=== PATIENT | female | born 1950 | race Caucasian/White ===

== ENCOUNTER 2020-04-21 14:48 | Inpatient (IN) | payer MEDICARE, OTHER ==
[~2020-04-21] VITALS: Ht 165.1 cm; Wt 65.0 kg
[2020-04-21 15:53] LABS: MICROSCOPIC NOT IND
[2020-04-21] MEDS ORDERED: SODIUM CHLORIDE FLUSH 10ML SYR IVF ONE (16:00)
--- NOTE | 2020-04-21 16:00 | NUR ---
PT STATES SHE HAS ABDOMINAL PAIN. PT FELL OFF TOILET AND HIT RIBS ON RIGHT SIDE. DENIES N/V. INTERMITTENT SHARP PAIN TO RLQ. DENIES URINATING BLOOD/.
[2020-04-21 16:25] LABS: BASOPHILS % (AUTO) 1 % (0-1); EOSINOPHILS % (AUTO) 2 % (1-7); LYMPHOCYTES % (AUTO) 16 % (22-44); MEAN CORPUSCULAR HEMOGLOBIN 28.7 pg (27.0-34.8); MEAN CORPUSCULAR HGB CONC 33.8 g/dL (32.4-35.8); MEAN PLATELET VOLUME 7.5 fL (7.4-10.4); MONOCYTES % (AUTO) 9 % (2-9); NEUTROPHILS % (AUTO) 73 % (42-75); PLATELET COUNT 324 x10^3/uL (130-400); RED BLOOD COUNT 5.13 x10^6/uL (3.82-5.3); RED CELL DISTRIBUTION WIDTH 13.2 % (9.6-15.2)
[2020-04-21 16:26] LABS: MD NO
[2020-04-21 16:38] LABS: ALANINE AMINOTRANSFERASE 24 U/L (12-78); ALBUMIN 3.9 g/dL (3.4-5.0); ANION GAP 8 mmol/L (5-15); CALCIUM 9.6 mg/dL (8.5-10.1); CHLORIDE 98 mmol/L (98-107); CREATININE 1.19 mg/dL (0.55-1.02)
[2020-04-21 16:40] LABS: ALKALINE PHOSPHATASE 72 U/L (45-117); BILIRUBIN,TOTAL 0.8 mg/dL (0.2-1.0); TOTAL PROTEIN 7.5 g/dL (6.4-8.2)
[2020-04-21] MEDS ORDERED: MORPHINE SULFATE 4 MG/ML, 1ML ONE (16:54)
[2020-04-21] MEDS ORDERED: MORPHINE SULFATE 4 MG/ML, 1ML IVPush PRN (17:00)
[2020-04-21] MEDS ORDERED: ONDANSETRON 2MG/ML, 2ML IVPush ONE (17:00)
--- NOTE | 2020-04-21 17:31 | NUR ---
PIV ATTEMPTED AND UNSUCCESSFUL. WILL ATTEMPT US IV.
--- NOTE | 2020-04-21 17:42 | NUR ---
MEDICATED PER ORDERS, PT READY FOR CT, US IV ESTABLISHED
--- NOTE | 2020-04-21 18:22 | NUR ---
PT BACK FROM CT. IV INFILTRATED DURING CT W CONTRAST.
--- NOTE | 2020-04-21 18:48 | NUR ---
REPORT TO JUAN
--- NOTE | 2020-04-21 19:07 | NUR ---
Report received from ROBIN Stevens. This RN to assume care.
[2020-04-21] MEDS ORDERED: OMNIPAQUE 350 MG/ML, 100ML BOTTLE ONE (19:53)
[2020-04-21] MEDS ORDERED: INSU100C5 SQ-INSULIN (20:08)
[2020-04-21] MEDS ORDERED: LEVO100T74 PO (20:08)
[2020-04-21] MEDS ORDERED: PRED5TAB PO (20:08)
[2020-04-21] MEDS ORDERED: ALEN70TA3 PO (20:08)
[2020-04-21] MEDS ORDERED: CALC1TAB2 PO (20:08)
[2020-04-21] MEDS ORDERED: OMEG1CAP23 PO (20:08)
--- NOTE | 2020-04-21 20:22 | NUR ---
Provided sandwich to patient. Patient to have high flow O2 admin. Will attempt oxymask to see how patient tolerates after done eating.
--- NOTE | 2020-04-21 20:29 | NUR ---
Report given to ROBIN Sales. Patient to be transferred to room [id number].
[2020-04-21] MEDS ORDERED: ACETAMINOPHEN 325 MG TABLET PO PRN (20:30)
[2020-04-21] MEDS ORDERED: ENALAPRILAT 1.25 MG/ML, 2ML IVPush PRN (20:30)
[2020-04-21] MEDS ORDERED: GUAIFENESIN/DM 200-20MG, 10ML UDC PO PRN (20:30)
[2020-04-21] MEDS ORDERED: DOCUSATE 100 MG CAPSULE PO PRN (20:30)
[2020-04-21] MEDS ORDERED: INSULIN LISPRO 100 UNITS/ML, PEN SQ-INSULIN SCH (21:00)
[2020-04-21 21:45] VITALS: BP 146/72
[2020-04-21] MEDS ORDERED: ATOR40TA78 PO (22:41)
[2020-04-21] MEDS ORDERED: florinef PO (22:41)
[2020-04-22] MEDS: morphine SULFATE 10 MG/ML, 1ML IVPush PRN ×2 (00:13→13:21)
[2020-04-22 03:05] VITALS: BP 170/75
[2020-04-22 03:17] VITALS: BP 149/83
[2020-04-22 05:42] LABS: BASOPHILS % (AUTO) 1 % (0-1); EOSINOPHILS % (AUTO) 6 % (1-7); LYMPHOCYTES % (AUTO) 34 % (22-44); MEAN CORPUSCULAR HEMOGLOBIN 28.5 pg (27.0-34.8); MEAN CORPUSCULAR HGB CONC 33.5 g/dL (32.4-35.8); MEAN PLATELET VOLUME 7.2 fL (7.4-10.4); MONOCYTES % (AUTO) 13 % (2-9); NEUTROPHILS % (AUTO) 46 % (42-75); PLATELET COUNT 279 x10^3/uL (130-400); RED BLOOD COUNT 4.67 x10^6/uL (3.82-5.3); RED CELL DISTRIBUTION WIDTH 13.4 % (9.6-15.2)
[2020-04-22 05:51] LABS: MD NO
[2020-04-22 05:54] LABS: ANION GAP 7 mmol/L (5-15); CALCIUM 8.9 mg/dL (8.5-10.1); CHLORIDE 99 mmol/L (98-107); CREATININE 0.89 mg/dL (0.55-1.02)
[2020-04-22] MEDS: LEVOTHYROXINE 100 MCG TABLET PO SCH (06:55)
[2020-04-22 07:17] VITALS: BP 141/83
[2020-04-22] MEDS: FLUDROCORTISONE 0.1 MG TABLET PO SCH (08:00)
[2020-04-22] MEDS ORDERED: ONDANSETRON 2MG/ML, 2ML ONE (08:35)
[2020-04-22] MEDS: ONDANSETRON 2MG/ML, 2ML IVPush PRN ×2 (08:36→13:21)
[2020-04-22 13:30] VITALS: BP 140/85
[2020-04-22] MEDS ORDERED: ONDANSETRON 2MG/ML, 2ML IVPush PRN (13:30)
[2020-04-22] MEDS ORDERED: KETOROLAC 30 MG/1 ML IVPush ONE (15:30)
[2020-04-22] MEDS ORDERED: MAGNESIUM HYDROXIDE 8%, 30ML UDC ONE (16:44)
[2020-04-22] MEDS: MAGNESIUM HYDROXIDE 8%, 30ML UDC PO PRN (16:46)
[2020-04-22 19:00] VITALS: BP 150/72
[2020-04-22] MEDS: ATORVASTATIN 40 MG TABLET PO SCH (20:33)
[2020-04-23 01:14] VITALS: BP 152/71
[2020-04-23] MEDS: LEVOTHYROXINE 100 MCG TABLET PO SCH (05:18)
[2020-04-23] MEDS: KETOROLAC 30 MG/1 ML IVPush SCH ×2 (06:00→12:04)
[2020-04-23] MEDS ORDERED: KETOROLAC 30 MG/1 ML ONE (06:56)
[2020-04-23 07:32] VITALS: BP 152/69
[2020-04-23 08:03] LABS: BASOPHILS % (AUTO) 1 % (0-1); EOSINOPHILS % (AUTO) 6 % (1-7); LYMPHOCYTES % (AUTO) 31 % (22-44); MEAN CORPUSCULAR HEMOGLOBIN 28.4 pg (27.0-34.8); MEAN CORPUSCULAR HGB CONC 33.3 g/dL (32.4-35.8); MONOCYTES % (AUTO) 13 % (2-9); NEUTROPHILS % (AUTO) 50 % (42-75); PLATELET COUNT 283 x10^3/uL (130-400); RED BLOOD COUNT 4.81 x10^6/uL (3.82-5.3)
[2020-04-23 08:09] LABS: ANION GAP 6 mmol/L (5-15); CALCIUM 9.1 mg/dL (8.5-10.1); CHLORIDE 96 mmol/L (98-107); CREATININE 1.05 mg/dL (0.55-1.02)
[2020-04-23 08:10] LABS: MD NO
[2020-04-23] MEDS: FLUDROCORTISONE 0.1 MG TABLET PO SCH (08:29)
[2020-04-23] MEDS: MAGNESIUM HYDROXIDE 8%, 30ML UDC PO PRN (08:33)
[2020-04-23] MEDS ORDERED: KETOROLAC 30 MG/1 ML IVPush SCH (09:00)
[2020-04-23 13:18] VITALS: BP 133/85
[2020-04-23] MEDS: CHOLECALCIFEROL 5,000u TAB PO SCH (13:33)
[2020-04-23 19:34] VITALS: BP 146/79
[2020-04-23] MEDS: NAPROXEN 500 MG TABLET PO SCH (20:30)
[2020-04-23] MEDS: ATORVASTATIN 40 MG TABLET PO SCH (20:31)
[2020-04-24 02:25] VITALS: BP 159/88
[2020-04-24] MEDS: LEVOTHYROXINE 100 MCG TABLET PO SCH (05:20)
[2020-04-24 06:11] LABS: BASOPHILS % (AUTO) 1 % (0-1); EOSINOPHILS % (AUTO) 6 % (1-7); LYMPHOCYTES % (AUTO) 29 % (22-44); MEAN CORPUSCULAR HEMOGLOBIN 28.3 pg (27.0-34.8); MEAN CORPUSCULAR HGB CONC 33.2 g/dL (32.4-35.8); MONOCYTES % (AUTO) 13 % (2-9); NEUTROPHILS % (AUTO) 52 % (42-75); PLATELET COUNT 271 x10^3/uL (130-400); RED BLOOD COUNT 4.52 x10^6/uL (3.82-5.3); RED CELL DISTRIBUTION WIDTH 12.7 % (9.6-15.2)
[2020-04-24 06:14] LABS: MD NO
[2020-04-24 06:22] LABS: ANION GAP 5 mmol/L (5-15); CALCIUM 9.1 mg/dL (8.5-10.1); CHLORIDE 96 mmol/L (98-107)
[2020-04-24 06:24] LABS: CREATININE 1.01 mg/dL (0.55-1.02)
[2020-04-24 07:20] VITALS: BP 161/84
[2020-04-24] MEDS ORDERED: NAPR-856 PO (08:39)
[2020-04-24] MEDS ORDERED: TRAM50TA2 PO ×3 (08:39→10:13)
[2020-04-24] MEDS ORDERED: CHOL500045 PO (08:39)
[2020-04-24] MEDS: NAPROXEN 500 MG TABLET PO SCH (09:25)
[2020-04-24] MEDS: CHOLECALCIFEROL 5,000u TAB PO SCH (09:25)
[2020-04-24] MEDS: FLUDROCORTISONE 0.1 MG TABLET PO SCH (09:26)
== END 2020-04-24 11:44 | disposition home or self-care (01) | DRG 200 ==
LOC: ED 15:55 → EDIP 20:23 → 4NE 21:52 → DCLOUNGE 04-24 11:25
PROVIDERS: ADMIT Family Medicine; ATTEND Family Medicine
DX: S27.0XXA Traumatic pneumothorax, initial encounter (principal); S22.31XA Fracture of one rib, right side, initial encounter for closed fracture; E27.1 Primary adrenocortical insufficiency; J98.11 Atelectasis; E10.9 Type 1 diabetes mellitus without complications; E55.9 Vitamin D deficiency, unspecified; E87.5 Hyperkalemia; K80.20 Calculus of gallbladder without cholecystitis without obstruction; M48.061 Spinal stenosis, lumbar region without neurogenic claudication; M81.0 Age-related osteoporosis without current pathological fracture; Z96.41 Presence of insulin pump (external) (internal); W01.0XXA Fall on same level from slipping, tripping and stumbling without subsequent striking against object, initial encounter; Z79.4 Long term (current) use of insulin; Y93.89 Activity, other specified; Y92.89 Other specified places as the place of occurrence of the external cause; Y99.8 Other external cause status; Z88.5 Allergy status to narcotic agent; Z88.8 Allergy status to other drugs, medicaments and biological substances; Z79.899 Other long term (current) drug therapy; Z79.891 Long term (current) use of opiate analgesic; Z79.01 Long term (current) use of anticoagulants
CPT/HCPCS: 36415; 71045; 71046; 74177; 76700; 80048; 80053; 81003; 82306; 83690; 84443; 85025; 96374; 99285; G0378; J1885; J2405; Q9967; J2270; J7512

== ENCOUNTER → 2020-07-18 | Outpatient (CLI) | payer MEDICARE ==
[~2020-07-18] MED LIST: ALEN70TA3 PO; ATOR40TA78 PO; CALC1TAB2 PO; CHOL500045 PO; INSU100C5 SQ-INSULIN; LEVO100T74 PO; NAPR-856 PO; OMEG1CAP23 PO; PRED5TAB PO; TRAM50TA2 PO; florinef PO
== END | disposition home or self-care (01) ==
LOC: CFH 10:27
PROVIDERS: ATTEND Internal Medicine
DX: Z12.31 Encounter for screening mammogram for malignant neoplasm of breast (principal); R92.1 Mammographic calcification found on diagnostic imaging of breast
CPT/HCPCS: 77063; 77067